=== PATIENT | female | born 1975 | race American Indian/Alaskan Native ===

== ENCOUNTER 2016-09-08 11:29 | Outpatient (CLI) | payer BC ==
--- NOTE | 2016-09-08 13:31 | Mammography Report ---
Bilateral mammogram: Compared to 07/28/15. CAD study utilized. Findings: Heterogeneous breast parenchyma bilaterally. Focal 3 mm high density asymmetry noted at the left mid breast. No microcalcification. Normal axilla. Impression: Focal new density asymmetry medial left breast. Recommend spot manifestation of breath examination. BI-RADS CATEGORY: 0 = Needs additional imaging evaluation ACR BI-RADS MAMMOGRAPHIC CODES: 0 = Needs additional imaging evaluation; 1 = Negative; 2 = Benign; 3 = Probably benign; 4 = Suspicious; 5 = Malignant; 6 = Known biopsy-proven malignancy COMMENT: 1. Dense breast tissue, i.e., adenosis, fibrocystic changes, etc., may obscure an underlying neoplasm. 2. Approximately 10% of cancers are not detected with mammography. 3. A negative mammography report should not delay biopsy if a clinically suspicious mass is present. COMMENT: Patient follow-up letters are generated in [employer].
== END 2016-09-08 11:30 | disposition home or self-care (01) ==
LOC: MAMMO 11:29
PROVIDERS: ATTEND Obstetrics & Gynecology
DX: Z12.31 Encounter for screening mammogram for malignant neoplasm of breast (principal)
CPT/HCPCS: 77067; G0202

== ENCOUNTER 2016-10-06 07:44 | Outpatient (CLI) | payer BC ==
--- NOTE | 2016-10-06 09:26 | Ultrasound Report ---
Left mammogram and left breast ultrasound: Based on recent screening examination additional mammogram compression lateral views of the left breast are obtained. A small focal area of density is relatively persistent on the compression views but less well-visualized on the straight lateral compression image. There is no architectural distortion on the additional images. Global left breast ultrasound does identified an elongated almost anechoic collection at 9:00. It is elongated measuring approximately 4 x 20 mm. The margins are sharp. There is slight enhancement of distal echoes. No other findings. Impressions: Probably benign mammogram and ultrasound findings. Recommendation: Repeat mammogram and left breast ultrasound in 6 months to confirm stability. The recommendations have been told to the patient. BI-RADS CATEGORY: 3 = Probably benign ACR BI-RADS MAMMOGRAPHIC CODES: 0 = Needs additional imaging evaluation; 1 = Negative; 2 = Benign; 3 = Probably benign; 4 = Suspicious; 5 = Malignant; 6 = Known biopsy-proven malignancy COMMENT: 1. Dense breast tissue, i.e., adenosis, fibrocystic changes, etc., may obscure an underlying neoplasm. 2. Approximately 10% of cancers are not detected with mammography. 3. A negative mammography report should not delay biopsy if a clinically suspicious mass is present.
== END 2016-10-06 07:45 | disposition home or self-care (01) ==
LOC: US 07:44
PROVIDERS: ATTEND Obstetrics & Gynecology
DX: R92.8 Other abnormal and inconclusive findings on diagnostic imaging of breast (principal)
CPT/HCPCS: 76641; G0206

== ENCOUNTER 2017-10-12 08:17 | Outpatient (CLI) | payer OTHER ==
--- NOTE | 2017-10-12 10:27 | Ultrasound Report ---
Bilateral tomomammogram and 2-D mammogram, bilateral breast ultrasound: Standard 2-D images are compared to her prior exams in 2016 and 2017. Images of the right breast demonstrates an elongated stable nodule in the inferomedial right breast. The breast pattern is heterogeneous and not otherwise remarkable. There is an elongated circumscribed nodule in the central left breast seen only in the CC projection which is apparently inferior in position on the lateral projection. On the prior exam it is only identified in the lateral view. The central asymmetry that was identified on that examination in the lateral projection is no longer identified. Mammotomograms demonstrate the left nodule to represent a circumscribed, elongated density having no calcifications or other suspicious characteristics. It is located in the 6:00 location measuring 12 mm in length.Tomograms of the right breast demonstrate a somewhat irregular contoured but elongated nodule in the medial breast measuring 3.1 cm. It is well visualized in the CC projection but less well-defined in the lateral tomograms. Ultrasound of the right breast in the 4:00 location demonstrates a circumscribed slightly inhomogeneous hypodensity which is elongated and measures 2.6 cm in maximum dimension. No calcifications. No internal blood flow. In the left breast there is a similar finding in the 6:00 location 2 cm from the nipple having a maximum dimension of 14.6 mm with no internal flow. CAD used. Impression: Bilateral circumscribed nodules apparently stable since 2016 on mammogram. Benign characteristics consistent with fibroadenoma by ultrasound. Recommendation: 6 month followup bilateral ultrasound to confirm stability of these findings. BI-RADS CATEGORY: 3 = Probably benign ACR BI-RADS MAMMOGRAPHIC CODES: 0 = Needs additional imaging evaluation; 1 = Negative; 2 = Benign; 3 = Probably benign; 4 = Suspicious; 5 = Malignant; 6 = Known biopsy-proven malignancy COMMENT: 1. Dense breast tissue, i.e., adenosis, fibrocystic changes, etc., may obscure an underlying neoplasm. 2. Approximately 10% of cancers are not detected with mammography. 3. A negative mammography report should not delay biopsy if a clinically suspicious mass is present.
== END 2017-10-12 08:18 | disposition home or self-care (01) ==
LOC: MAMMO 08:17
PROVIDERS: ATTEND Obstetrics & Gynecology
DX: Z12.31 Encounter for screening mammogram for malignant neoplasm of breast (principal); N63.10 Unspecified lump in the right breast, unspecified quadrant; N63.20 Unspecified lump in the left breast, unspecified quadrant
CPT/HCPCS: 77063; 77067

== ENCOUNTER 2017-10-29 13:35 | Outpatient (CLI) | payer OTHER ==
--- NOTE | 2017-10-29 16:43 | Ultrasound Report ---
RIGHT BREAST ULTRASOUND: 10/29/17 13:35:00 CLINICAL: Presented for a needle biopsy of a Mass described to be at 4 o'clock 3 cm from the nipple. COMPARISON: 10/12/17 ultrasound and screening mammogram with tomosynthesis. FINDINGS: Ultrasound of the right breastfail to demonstrate a mass to biopsy. The structure that was described at the previous exam and was recommended for biopsy appears to be a benign fat lobule. It is isoechoic with several similar fat lobules from 3 o'clock to 4 o'clock 3 cm from the nipple. I also scanned the left breast and found no mass to warrant biopsy. The abnormality described to be at 6 o'clock on the last ultrasound also appears to be a benign fat lobule. IMPRESSION: Negative right breast ultrasound with no mass to biopsy. Recommend a six month followup bilateral diagnostic mammogram with tomosynthesis and ultrasound if needed since the ultrasound workups were based on mammographic findings. BI-RADS 3 - - Probably Benign
== END 2017-10-29 13:36 | disposition home or self-care (01) ==
LOC: SPVWC 13:35
PROVIDERS: ATTEND Surgery
DX: N63.10 Unspecified lump in the right breast, unspecified quadrant (principal)

== ENCOUNTER 2017-12-18 06:03 | Observation (INO) | payer OTHER ==
[2017-12-17 14:17] LABS: Basophils # (Auto) 0.1 K/mm3 (0.0-0.1); Eosinophils # (Auto) 0.1 K/mm3 (0.0-0.4); Eosinophils % (Auto) 2.3 % (0.0-4.3); Hematocrit 36.7 % (30.3-42.9); Hemoglobin 12.2 gm/dl (10.1-14.3); Lymphocytes # (Auto) 2.3 K/mm3 (1.2-5.4); Lymphocytes % (Auto) 45.6 % (13.4-35.0); Mean Corpuscular HGB Conc 33 % (30-34); Mean Corpuscular Hemoglobin 28 pg (28-32); Mean Corpuscular Volume 85 fl (79-97); Monocytes # (Auto) 0.5 K/mm3 (0.0-0.8); Monocytes % (Auto) 9.7 % (0.0-7.3); Platelet Count 250 K/mm3 (140-440); Red Cell Distribution Width 14.7 % (13.2-15.2)
--- NOTE | 2017-12-17 17:57 | Anesthesia Day of Surgery ---
Anesthesia Day of Surgery - Day of Surgery Patient Examined: Yes Patient H&P Reviewed: Yes Patient is NPO: Yes
--- NOTE | 2017-12-17 19:04 | History and Physical Report ---
History of Present Illness Date of examination: 12/12/17 Chief complaint: Fibroids, severe dysmenorrhea, pelvic pain, history of endometriosis History of present illness: Past History : 4 Term Births: 3 Living Children: 3 Spont. Ab: 1 # 1 Delivery date: 1988 Comments: [id number] [employer] History Operations: D&C: [employer] Surgery: l'scopy-endometriosis Tubal Ligation Abnormal PAP: negative Infection History HIV Risk Eval: no Hx of STD: None Active Medications (reviewed today): TRULANCE TABLET (PLECANATIDE TABS) IBUPROFEN 800 MG ORAL TABLET (IBUPROFEN) 1 po TID (PRN) OXYCODONE-ACETAMINOPHEN 5-325 MG ORAL TABLET (OXYCODONE-ACETAMINOPHEN) 1-2po q6h LUPRON DEPOT (1-MONTH) 3.75 MG INTRAMUSCULAR KIT (LEUPROLIDE ACETATE) 3.75mg IM qminth x3 Current Allergies (reviewed today): No known allergies Past Medical History: Reviewed history from 10/03/2017 and no changes required: chronic constipation Endometriosis Past Surgical History: Reviewed history from 08/27/2008 and no changes required: D&C: [employer] Surgery: l'scopy-endometriosis Tubal Ligation Family History Summary: Reviewed history Last on 10/03/2017 and no changes required:12/17/2017 Has No Family History of Brain Cancer - Entered On: 10/15/2016 Has No Family History of Colon Cancer - Entered On: 10/15/2016 Has No Family History of DVT/PE on OCP - Entered On: 10/15/2016 Has No Family History of Kidney/Urinary Tract Cancer - Entered On: 10/15/2016 Has No Family History of Ovarvian Cancer - Entered On: 10/15/2016 Has No Family History of Pancreatic Cancer - Entered On: 10/15/2016 Has No Family History of Stomach Cancer - Entered On: 10/15/2016 Has No Family History of Small Bowel Cancer - Entered On: 10/15/2016 Has No Family History of Uterine Cancer - Entered On: 10/15/2016 General Comments - FH: Family History Breast Cancer:paternal aunt dx'd 40's No Family History of Colon Cancer No Family History of Ovarian Cancer No Family History of DVT/PE on OCP Social History: Reviewed history from 08/31/2016 and no changes required: Patient is Smoking History: Patient has never smoked. Risk Factors: Smoked Tobacco Use: Never smoker Smokeless Tobacco Use: Never Drug use: no HIV high-risk behavior: no Alcohol use: no Exercise: yes Seatbelt use: 100 % Mammogram History: Date of Last Mammogram: 09/08/2016 PAP Smear History: Date of Last PAP Smear: 08/31/2016 Previous Tobacco Use: Signed On 10/03/2017 Smoked Tobacco Use: Never smoker Smokeless Tobacco Use: Never Drug use: no HIV high-risk behavior: no Previous Alcohol Use: Signed On - 10/03/2017 Alcohol use: no Exercise: yes Times per week: 1 Seatbelt use: 100 % Mammogram History: Date of Last Mammogram: 09/08/2016 PAP Smear History: Date of Last PAP Smear: 08/31/2016 Review of Systems General Denies fever, chills, sweats, anorexia, fatigue, weakness, malaise, weight loss and sleep disorder. Complains of pelvic pain. Denies vaginal discharge, incontinence, dysuria, hematuria, urinary frequency, amenorrhea, menorrhagia, abnormal vaginal bleeding, genital sores, decreased libido, painful periods, painful sex, urinary urgency, hot flashes, vaginal dryness, vaginal itching and vaginal odor. CV Denies chest pains, palpitations, syncope, dyspnea on exertion, orthopnea, PND and peripheral edema. Resp Denies cough, dyspnea at rest, excessive sputum, hemoptysis, wheezing and pleurisy. GI Denies nausea, vomiting, diarrhea, constipation, change in bowel habits, abdominal pain, melena, hematochezia, jaundice, gas/bloating, indigestion/ heartburn, dysphagia and odynophagia. Endo Denies cold intolerance, heat intolerance, polydipsia, polyphagia, polyuria and unusual weight change. Breast Denies left breast lump, right breast lump, nipple discharge, bloody discharge from nipple, breast pain, abnormal mammogram and breast enlargement. MS Denies back pain, joint pain, joint swelling, muscle cramps, muscle weakness, stiffness, arthritis, sciatica, restless legs, leg pain at night and leg pain with exertion. Derm Denies rash, itching, dryness and suspicious lesions. Neuro Denies paralysis, paresthesias, headache, seizures, tremors, vertigo, transient blindness, frequent falls, frequent headaches and difficulty walking. Psych Denies depression, anxiety, irritability and mood swings. Eyes Denies blurring, diplopia, irritation, discharge, vision loss, eye pain and photophobia. ENT Denies earache, ear discharge, tinnitus, decreased hearing, nasal congestion, nosebleeds, sore throat and hoarseness. Allergy Denies urticaria, allergic rash, hay fever and recurrent infections. Heme Denies abnormal bruising, bleeding and enlarged lymph nodes. Physical Exam Appearance: well developed, well nourished, no acute distress Other Exams Abdomen: soft, non-tender, no masses Skin: no ulcers, xanthomas Extremities: normal alignment, no joint enlargement, crepitus, masses or tenderness; normal tone and strength CV: RRR Lungs: CTAB Genitourinary Exam Vulva: normal, no lesions or discharge Urethral meatus: normal size and location, no lesions or discharge Urethra: no discharge Bladder: no cystocele Vagina: normal appearance, no discharge, lesions. No evidence of cystocele or rectocele. Cervix: normal appearance, no lesions, no discharge Uterus: anterior fibroid, fixed Adnexa: no masses or tenderness Impression & Recommendations: Problem # 1: DYSMENORRHEA (ICD-625.3) (DIO18-Q39.6) Consent reviewed and signed . Possible laparoscopy or laparotomy explained to patient. The risks and alternatives for this surgery were reviewed with the patient. She was informed of possible bleeding, infection, injury to bowel, bladder, ureters or other adjacent organs. Se desires ovarian conservation. She was informed she may require surgery later to have her ovaries removed for a benign or mailgnant condition She was also informed she will not be able to get after her uterus has been removed. The patient was instructed/informed the following: The normal length of hospital stay for this procedure. Nothing to eat or drink after midnight the evening prior to surgery. Clear liquids the day before surgery. Fleets enema the day prior to surgery. Pre-op instruction sheets given. Wound care instructions given. Infection precautions reviewed, patient to call for any signs or symptoms of infection. The usual discomforts associated with this procedure were detailed. Proper use of pain medicines was reviewed. Patient was given ample opportunity to have all her questions answered before signing informed consent. Problem # 2: Pelvic and perineal pain (ICD-789.00) (IMP27-I15.2) It was extensively explained to her that her pain may persist, recur or change in nature due to the difficulty with diagnosis chronic pelvic pain or development of adhesions. She declined other treatment options at this time Her updated medication list for this problem includes: Problem # 3: FIBROID UTERUS (ICD-218.0) (LEJ07-F74.0) Diagnosis explained to patient . Questions answered. Discussed with patient various medical, surgical and radioloigal therapies common for treatment: Hormonal/medical therapy, fibroid embolization, removal of fibroids or hysterectomy Shedesires to proceed with hysterectomy Her updated medication list for this problem includes: Ibuprofen 800 Mg Oral Tablet (Ibuprofen) ..... 1 po tid (prn) Oxycodone-acetaminophen 5-325 Mg Oral Tablet (Oxycodone-acetaminophen) ..... 1-2po q6h Orders: Ofc Vst Est 77390 (CPT-22499) Problem # 4: ENDOMETRIOSIS OF PELVIC PERITONEUM (ICD-617.3) (HSC30-W38.3) Endometriosis was thoroughly reviewed. She is aware that he pain may progressively worsen if endometriosis is again present and she preserves her ovaries. Patient voiced understanding and still desires ovarian conservation Medications Added to Medication List This Visit: 1) Trulance Tablet (Plecanatide tabs) 2) Ibuprofen 800 Mg Oral Tablet (Ibuprofen) .... 1 po tid (prn) 3) Oxycodone-acetaminophen 5-325 Mg Oral Tablet (Oxycodone-acetaminophen) .... 1-2po q6h Prescriptions: IBUPROFEN 800 MG ORAL TABLET (IBUPROFEN) 1 po TID (PRN) #30 x 1 Entered and Authorized by: Monica Caban MD Method used: Print then Give to Patient RxID: [id number] OXYCODONE-ACETAMINOPHEN 5-325 MG ORAL TABLET (OXYCODONE-ACETAMINOPHEN) 1-2po q6h #30 x 0 Entered and Authorized by: Monica Caban MD Method used: Print then Give to Patient RxID: [id number] Medications and Allergies Allergies Allergy/AdvReac Type Severity Reaction Status Date / Time No Known Allergies Allergy Unverified 12/12/17 16:13 Home Medications Medication Instructions Recorded Confirmed Last Taken Type No Known Home Medications [No 12/12/17 12/12/17 Unknown History Reported Home Medications] Active Meds: Active Medications Lactated Ringer's (Lactated Ringers) 1,000 mls @ 100 mls/hr IV DIRECT REUBEN Cefazolin Sodium (Ancef/Sterile Water 2 Gm/20 Ml) 2 gm in 20 mls @ 80 mls/hr IV PREOP NR; Protocol Midazolam HCl (Versed) 2 mg IV PREOP NR Stop: 12/18/17 23:59 Exam Vital Signs Temp Pulse Resp BP 98.4 F 76 16 110/70 12/17/17 13:50 12/17/17 13:50 12/17/17 13:50 12/17/17 13:50 Results - Labs 12/17/17 14:00 Abnormal lab results 12/17/17 Range/Units 14:00 Lymph % (Auto) 45.6 H (13.4-35.0) % Johnston % (Auto) 9.7 H (0.0-7.3) % Assessment and Plan - Patient Problems (1) Dysmenorrhea Status: Chronic (2) Pelvic pain Status: Chronic (3) Fibroids Status: Chronic Qualifiers: Uterine leiomyoma location: intramural, submucous, and subserous Qualified Code(s): D25.1 - Intramural leiomyoma of uterus; D25.0 - Submucous leiomyoma of uterus; D25.2 - Subserosal leiomyoma of uterus (4) History of endometriosis Status: Chronic
[~2017-12-18 06:03] MED LIST: ANCEF/STERILE WATER 2 GM/20 ML 2 GM/20 ML SYRINGE IV NR; LACTATED RINGERS 1,000 ML IV SCH; VERSED IV NR
[2017-12-18] MEDS ORDERED: NACL BACTERIOSTATIC INFILTRATI ONE (06:32)
[2017-12-18] MEDS ORDERED: LACTATED RINGERS 1,000 ML IV SCH ×2 (07:00→14:01)
[2017-12-18] MEDS ORDERED: NEURONTIN PO NR (07:00)
[2017-12-18] MEDS ORDERED: REGLAN IV PRN ×2 (07:08→14:01)
[2017-12-18] MEDS ORDERED: NARCAN 0.4 MG/1 ML IV PRN (07:08)
[2017-12-18] MEDS ORDERED: ZOFRAN IV PRN ×2 (07:08→14:01)
[2017-12-18] MEDS ORDERED: DEMEROL IV PRN (07:08)
[2017-12-18] MEDS ORDERED: TYLENOL PO PRN (07:08)
[2017-12-18] MEDS ORDERED: DIPRIVAN 10 MG/ML IV ONE (07:11)
[2017-12-18] MEDS ORDERED: XYLOCAINE MPF 2% ONE ×2 (07:11)
[2017-12-18] MEDS ORDERED: ZEMURON IV ONE (07:12)
[2017-12-18] MEDS ORDERED: DILAUDID ONE (07:12)
[2017-12-18] MEDS ORDERED: ZOFRAN ONE (07:12)
[2017-12-18] MEDS ORDERED: DECADRON ONE (07:12)
[2017-12-18] MEDS ORDERED: NEOSPORIN GU IR ONE ×2 (07:23→09:01)
[2017-12-18 08:18] LABS: Alanine Aminotransferase 8 units/L (7-56); Albumin 3.7 g/dL (3.9-5); BUN/Creatinine Ratio 9; Blood Urea Nitrogen 6 mg/dL (7-17); Calcium 8.2 mg/dL (8.4-10.2); Hemolysis Index 13
[2017-12-18] MEDS ORDERED: MARCAINE 0.5% 30 ML INFILTRATI ONE (08:26)
[2017-12-18] MEDS ORDERED: NACL 0.9% IR ONE (09:01)
[2017-12-18] MEDS ORDERED: WATER FOR IRRIG STERILE IR ONE (09:01)
[2017-12-18] MEDS ORDERED: MARCAINE 0.5% INFILTRATI ONE (09:01)
[2017-12-18] MEDS ORDERED: BLOXIVERZ ONE (10:10)
[2017-12-18] MEDS ORDERED: ROBINUL ONE (10:10)
--- NOTE | 2017-12-18 10:14 | Operative Report ---
Operative Report Operative Report: Date: 12/18/2017 Preoperative diagnosis: 1. Pelvic pain 2. Severe dysmenorrhea 3. Uterine fibroids 4. History of endometriosis Postoperative diagnosis: 1. Pelvic pain 2. Severe dysmenorrhea 3. Uterine fibroids 4. History of endometriosis 5. Right ovarian cyst Procedure: 1. Robotic-assisted laparoscopic total hysterectomy with bilateral salpingectomy 2. Right ovarian cystectomy Surgeon: Monica Caban MD Health Information Technologist: Tana Childs Anesthesiologist: Mihai Thomas M.D. Anesthesia: General endotracheal anesthesia EBL: Approximately 50 mL Findings: Uterus was sounded to 11 cm. 1 cm right ovarian cyst. Grossly normal segments of bilateral fallopian tubes. Grossly normal left ovary. Uterus was enlarged with multiple fibroids. Cervix appeared normal. Procedure: Patient was taken to the OR and placed in the supine position. General anesthesia was induced and an oral gastric tube was placed. Her neck and head were placed on foam support. Foam eye protection with goggles were secured in place. Then foam face protection was placed and secured. Foam shoulder pads were then positioned on her shoulders for Trendelenburg positioning. She was then placed in dorsolithotomy position. Exam under anesthesia []. The abdomen and vagina were then prepped and draped in the usual sterile fashion. Timeout was performed. A Howard catheter was inserted into the bladder with drainage of clear yellow urine. The operative speculum was introduced into the vagina and the anterior lip of the cervix was grasped with single-toothed tenaculum. The uterus was sounded to [] cm. The cervix was progressively dilated to allow the large V care uterine manipulator. The bulb of the manipulator was inflated and the speculum and tenaculum were removed. The cup of the manipulator was placed around the cervix and the blue occluder of the manipulator was properly positioned in the vagina. A laparotomy sponge that was saturated with a solution of polymyxin and saline was placed in the vagina to ensure pneumoperitoneum. Sterile gloves were placed and attention was turned to the abdomen. A 10 mm vertical supraumbilical incision was made approximately 10 cm superior to the elevated fundus of the uterus. A 12 mm trocar with the laparoscope and camera attached was introduced through this incision under direct visualization. The abdomen was insufflated. No obvious bowel, bladder, ureteral, or major vascular injury was noted. The patient was then placed in steep Trendelenburg position and the following trochars were placed under direct visualization: 8 mm robotic trochars were placed through incisions made in the bilateral midclavicular lower abdominal region approximately 10 cm lateral and approximately 2 cm below the midline incision, and a 5 mm trocar was placed through an incision made in the right lower lateral pelvis approximately 2 cm superior to the iliac crest. The 10 mm laparoscope was then replaced by a 5 mm laparoscope that was placed through the 5 millimeter lateral trocar. The 12 mm trocar was then removed in the Vito Méndez fascial closure device was placed through the incision and a 0 Vicryl was placed through the fascia. Once the suture was secured the 12 mm trocar was reintroduced. Once the trochars were in the appropriate positions, the the mPowa robot system was engaged. The EndoShears and bipolar device was placed through the 8 mm trochars and positioned then attention was turned to the console. The uterus was elevated and bilateral salpingectomy was performed. Each tube was removed through the 5 mm trocar and sent to pathology in separate containers. Then the utero-ovarian ligaments were clamped. cauterized and incised bilaterally using 30 W of energy. Then the round ligaments were clamped , cauterized and incised bilaterally. The anterior leaf of the broad ligament was elevated and careful blunt and sharp dissection the bladder flap was created and dissected away from the lower uterine segment and cervix. The posterior leaf of the broad ligament was dissected away from the uterine vessels. The cup of the uterine manipulator was palpated both anteriorly and posteriorly. Course of the ureters was visualized and was confirmed to be away from the operative field. The uterine vessels were then clamped and cauterized bilaterally. Blanching of the uterus was then noted. Attention was again turned to the anterior lower uterine segment and the bladder was confirmed to be away from the operative field. Then attention was turned again to the posterior where the cup of the manipulator was palpated and a colpotomy was performed down to the cup. The incision was extended in the lateral position the uterine vessels that were again clamped and cauterized and incised. Continuing along the cup of the manipulator in a circumferential manner the colpotomy was completed. The uterus and cervix were then removed through the vaginal incision. The pelvis was irrigated with warm normal saline. A moist laparotomy sponge was placed in the vagina to maintain pneumoperitoneum. The vagina cuff was reapproximated using V LOC 180 suture in a simple running stitch. Then a J stitch was performed to secure the suture. Again the pelvis was copiously irrigated with polymixin in warm normal saline. The laparotomy sponge was removed from the vagina. No bowel, bladder, ureteral or major vascular injury was noted. Then the right ovary was elevated and ovarian cystectomy was performed. Hemostasis obtained with electrocoagulation. The cyst was removed with 5 mm trocar. Once hemostasis was noted, Ryan was applied to the operative field to ensure hemostasis. Then Interceed was applied to the operative field to decrease formation of adhesions. Again hemostasis was noted. Grossly normal appendix was noted. Then the instruments were removed, the robot was disengaged. The 12 mm trocar was removed and the fascia was ligated with the 0 Vicryl suture that was placed at the beginning of the procedure. The patient was taken out of Trendelenburg position, the abdomen was desufflated, the remaining trochars were removed. Incisions were reapproximated using 4-0 Vicryl in a subcuticular manner. Incisions were infused with half percent Marcaine without epinephrine and Surgiseal was placed over the incisions. The vagina was then inspected, no bleeding was noted and clear yellow urine was draining into the Howard bag from the bladder at the end of the procedure. Patient was taken to recovery room in stable condition.
[2017-12-18] MEDS ORDERED: TORADOL IV NR (10:30)
[2017-12-18] MEDS: DILAUDID IV PRN ×4 (10:35→11:20)
[2017-12-18] MEDS ORDERED: ZOFRAN PO PRN (14:01)
[2017-12-18] MEDS ORDERED: ANCEF/NS 1 GM/50 ML 1 GM/50 ML BAG IV SCH (14:01)
[2017-12-18] MEDS ORDERED: REGLAN PO PRN (14:01)
[2017-12-18] MEDS ORDERED: TYLENOL PR PRN (14:01)
[2017-12-18] MEDS ORDERED: MORPHINE IV PRN (14:01)
[2017-12-18] MEDS: TYLENOL PO SCH (14:38)
--- NOTE | 2017-12-18 14:44 | Post Anesthesia Evaluation ---
- Post Anesthesia Evaluation Patient Participated: Yes Airway Patent: Yes Stable Respiratory Function: Yes Nausea/Vomiting: No Temp > 96.8F: Yes Pain Manageable: Yes Adequeate Hydration: Yes Anesthesia Complications: No Block Receding Appropriately: Not Applicable Patient on Ventilator: No
[2017-12-18] MEDS: ceFAZolin 1 GM in NACL 0.9% 20 ML IV SCH (16:45)
[2017-12-18] MEDS: PROTONIX IV SCH (16:46)
[2017-12-18] MEDS: TORADOL IV SCH (16:55)
--- NOTE | 2017-12-18 21:04 | Progress Note ---
Assessment and Plan Operative findings and procedure explained. No obvious evidence of DVT, will observe closely. Explained possible transient peroneal nerve compression with dorsolithotomy position. Plan of care discussed, questions were encouraged and answered. She voiced understanding and agrees with plan - Patient Problems (1) Dysmenorrhea Current Visit: No Status: Resolved (2) Pelvic pain Current Visit: No Status: Resolved (3) Fibroids Current Visit: No Status: Resolved Qualifiers: Uterine leiomyoma location: intramural, submucous, and subserous Qualified Code(s): D25.1 - Intramural leiomyoma of uterus; D25.0 - Submucous leiomyoma of uterus; D25.2 - Subserosal leiomyoma of uterus (4) History of endometriosis Current Visit: No Status: Chronic (5) History of robot-assisted laparoscopic hysterectomy Current Visit: Yes Status: Acute (6) Status post bilateral salpingectomy Current Visit: Yes Status: Acute Subjective - Subjective Date of service: 12/18/17 Principal diagnosis: DOS s/p RATH with(B) salpingectomy Interval history: Resting in bed, complains of pain (L) LE Patient reports: pain well controlled Objective - Vital Signs Latest vital signs: Vital Signs Temp Pulse Resp BP BP Pulse Ox 12/18/17 16:31 97.9 F 77 20 109/66 100 12/18/17 12:10 97.7 F 83 14 101/64 98 12/18/17 12:05 97.9 F 83 16 101/64 95 12/18/17 11:50 13 12/18/17 11:45 84 12 111/57 96 12/18/17 11:30 77 10 L 100/61 96 12/18/17 11:20 12 12/18/17 11:15 76 12 110/65 96 12/18/17 11:02 13 12/18/17 11:00 80 10 L 107/69 97 12/18/17 10:46 14 12/18/17 10:45 75 14 115/73 98 12/18/17 10:35 20 12/18/17 10:30 74 14 112/73 97 12/18/17 10:21 15 12/18/17 10:20 85 11 L 130/76 99 12/18/17 10:15 89 12 129/69 100 12/18/17 10:11 97.3 F L 100 H 13 129/74 100 12/18/17 06:20 97.8 F 72 20 111/69 100 Intake and Output 12/18/17 12/18/17 12/18/17 06:59 14:59 22:59 Intake Total 100 650 120 Output Total 405 500 Balance 100 245 -380 Intake: IV 100 650 Oral 120 Output: Urine 405 500 Indwelling Catheter 500 Other: Total, Intake Amount 120 Total, Output Amount 500 Voiding Method Toilet Indwelling Catheter - Exam Cardiovascular: Present: Regular rate Lungs: Present: Clear to auscultation, Normal air movement Abdomen: Present: normal appearance, normal bowel sounds. Absent: distention, tenderness, guarding Extremities: Absent: tenderness, edema Incision: Present: normal, dry, intact - Labs Labs: Abnormal lab results 12/18/17 Range/Units 07:40 BUN 6 L (7-17) mg/dL Calcium 8.2 L (8.4-10.2) mg/dL Alkaline Phosphatase 30 L (35-129) units/L Albumin 3.7 L (3.9-5) g/dL
[2017-12-19] MEDS: TYLENOL PO SCH ×2 (01:28→10:03)
[2017-12-19] MEDS: TORADOL IV SCH ×2 (01:28→10:03)
[2017-12-19] MEDS: ceFAZolin 1 GM in NACL 0.9% 20 ML IV SCH (01:29)
[2017-12-19] MEDS ORDERED: MILK OF MAGNESIA PO PRN (01:59)
[2017-12-19] MEDS: MYLICON PO PRN ×2 (04:11→19:20)
[2017-12-19 08:19] LABS: Hemoglobin 11.2 gm/dl (10.1-14.3)
--- NOTE | 2017-12-19 08:58 | Progress Note ---
Assessment and Plan POD#1, doing well. No nausea now, tolerated toast and cameron. Awaiting doppler Cautioned patient not to ambulate without assistance, however importance of ambulating to prevent DVT/PE emphasized. RN informed as well. Will allow home if doppler negative and no problems She voiced understanding - Patient Problems (1) Dysmenorrhea Current Visit: No Status: Resolved (2) Pelvic pain Current Visit: No Status: Resolved (3) Fibroids Current Visit: No Status: Resolved Qualifiers: Uterine leiomyoma location: intramural, submucous, and subserous Qualified Code(s): D25.1 - Intramural leiomyoma of uterus; D25.0 - Submucous leiomyoma of uterus; D25.2 - Subserosal leiomyoma of uterus (4) History of endometriosis Current Visit: No Status: Chronic (5) History of robot-assisted laparoscopic hysterectomy Current Visit: Yes Status: Acute (6) Status post bilateral salpingectomy Current Visit: Yes Status: Acute (7) Leg pain, left Current Visit: Yes Status: Acute Plan to address problem: Doppler ordered Subjective - Subjective Date of service: 12/19/17 Principal diagnosis: POD#1 s/p RATH with(B) salpingectomy Interval history: Resting in bed, leg feels much better. She has some nausea last pm, no vomiting. Patient reports: appetite normal (ate toast and cameron this am, no nausea), pain well controlled Objective - Vital Signs Latest vital signs: Vital Signs Temp Pulse Pulse Resp BP BP Pulse Ox 12/19/17 04:51 98.6 F 20 102/51 12/19/17 00:33 98.5 F 66 20 96/59 100 12/18/17 20:53 98.5 F 71 22 100/61 100 12/18/17 19:45 68 16 12/18/17 16:31 97.9 F 77 20 109/66 100 12/18/17 12:10 97.7 F 83 14 101/64 98 12/18/17 12:05 97.9 F 83 16 101/64 95 12/18/17 11:50 13 12/18/17 11:45 84 12 111/57 96 12/18/17 11:30 77 10 L 100/61 96 12/18/17 11:20 12 12/18/17 11:15 76 12 110/65 96 12/18/17 11:02 13 12/18/17 11:00 80 10 L 107/69 97 12/18/17 10:46 14 12/18/17 10:45 75 14 115/73 98 12/18/17 10:35 20 12/18/17 10:30 74 14 112/73 97 12/18/17 10:21 15 12/18/17 10:20 85 11 L 130/76 99 12/18/17 10:15 89 12 129/69 100 12/18/17 10:11 97.3 F L 100 H 13 129/74 100 Intake and Output 12/18/17 12/19/17 12/19/17 22:59 06:59 14:59 Intake Total 240 100 Output Total 1400 1350 Balance -1160 -1250 Intake: Oral 120 Intake, Free Water 120 100 Output: Urine 1400 1350 Indwelling Catheter 1400 1350 Other: Total, Intake Amount 120 Total, Output Amount 900 850 Voiding Method Indwelling Catheter - Exam Breasts: Present: deferred Cardiovascular: Present: Regular rate Lungs: Present: Clear to auscultation, Normal air movement Abdomen: Present: normal appearance, soft, normal bowel sounds. Absent: distention, guarding Extremities: Present: normal. Absent: tenderness, edema Incision: Present: normal, dry, intact
[2017-12-19] MEDS: PROTONIX IV SCH (10:03)
[2017-12-19] MEDS ORDERED: PERCOCET 5/325 PO PRN (10:30)
--- NOTE | 2017-12-19 20:51 | Cat Scan Report ---
FINAL REPORT PROCEDURE: CT ANGIO CHEST TECHNIQUE: Computerized tomographic angiography of the chest was performed after the IV injection of iodinated nonionic contrast including image processing. The image data was postprocessed using 2-dimensional multiplanar reformatted (MPR) and 3-dimensional (MIP and/or volume rendered) techniques. HISTORY: s/p abd surgery, evaluate for pulmonary embolism COMPARISON: No prior studies are available for comparison. FINDINGS: Heart and pericardium: Normal. Thoracic aorta: Normal. Pulmonary vasculature: Normal. Lymph nodes: No enlarged thoracic lymph nodes. Lungs: Normal. Pleural space: Minimal bilateral pleural effusions are noted.. Musculoskeletal structures: No significant abnormality. Upper abdominal structures: Mild degree free air is noted in the peritoneal cavity consistent with recent abdominal surgery.. IMPRESSION: No evidence of pulmonary embolism No acute pulmonary process Mild degree free air in the peritoneal cavity is consistent with recent abdominal surgery.
--- NOTE | 2017-12-19 22:20 | Event Note ---
Date: 12/19/17 Complained of SOB earlier, CT scan chest ordered, procedure delayed because she ate. S/w patient by phone, CT scan results discussed, states she feels better. Minimal pleural effusions. Will observe tonight and allow home tomorrow if she continues to be stable. Patient agrees with plan of care.
--- NOTE | 2017-12-20 07:46 | Discharge Summary ---
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 Her post op course was complicated by complains of LLE tightness and pain the evening on surgery, prior to receiving the results of the Doppler study she then complained of SOB. CT chest was completed ~1700 and results were not available until ~2029. She was observed overnight. This am no complaints and desires d/c home Disposition: TO HOME OR SELFCARE - Discharge Diagnoses (1) History of endometriosis Status: Chronic (2) History of robot-assisted laparoscopic hysterectomy Status: Acute (3) Status post bilateral salpingectomy Status: Acute (4) Leg pain, left Status: Acute Core Measure Documentation - Palliative Care Palliative Care/ Comfort Measures: Not Applicable - Core Measures Any of the following diagnoses?: none Exam - Constitutional Vitals: Temp Pulse Resp BP Pulse Ox 97.8 F 71 20 97/59 99 12/20/17 00:52 12/20/17 00:52 12/20/17 00:52 12/20/17 00:52 12/20/17 00:52 General appearance: Present: no acute distress - Respiratory Respiratory effort: normal Respiratory: bilateral: CTA - Cardiovascular Rhythm: regular - Extremities Extremities: no ischemia, No edema (NT) - Abdominal General gastrointestinal: Present: soft, non-distended, normal bowel sounds - Rectal Rectal Exam: deferred - Integumentary Integumentary: Present: clear, warm, dry - Psychiatric Psychiatric: appropriate mood/affect, intact judgment & insight Plan Activity: other (No sex, ambulate ~1mile on your property a day. Use your Incentive spirometer every hour while awake. ) Weight Bearing Status: Full Weight Bearing Diet: regular (Eat small meals frequently. drink ~64oz water a day. Void every 1 -2 hours. ) Wound: open to air, keep clean and dry Special Instructions: no heavy lifting (greater than 25#) Follow up with: TERELL CAMERON MD [Staff Physician] - (As scheduled)
[2017-12-20 08:29] VITALS: BP 112/47
== END 2017-12-20 09:35 | disposition home or self-care (01) ==
LOC: OR 06:03 → OB 10:30
PROVIDERS: ADMIT Obstetrics & Gynecology; ATTEND Obstetrics & Gynecology
DX: D25.9 Leiomyoma of uterus, unspecified (principal); N94.6 Dysmenorrhea, unspecified; N80.3 Endometriosis of pelvic peritoneum
CPT/HCPCS: 36415; 58554; 71275; 80053; 81025; 85014; 85018; 85025; 86850; 86900; 86901; 88305; 88307; 93971; 96374; 96375; 96376; A4217; C1765; C9113; G0378; J0690; J1100; J1170; J1885; J2250; J2405; J2704; J2710; J2765; J7120; S2900; 88302

== ENCOUNTER 2019-02-04 14:11 | Outpatient (CLI) | payer OTHER ==
--- NOTE | 2019-02-04 16:23 | Mammography Report ---
DIGITAL SCREENING MAMMOGRAM WITH TOMOSYNTHESIS WITH CAD, 02/04/2019 INDICATION: Screening. TECHNIQUE: Digital bilateral 2D and 3D mammography with tomosynthesis was obtained in the craniocaud al and mediolateral oblique projections. Computer-Aided Detection (CAD) analysis was used for interp retation of this study. COMPARISON: 09/08/2016, 10/12/2017. FINDINGS: Breast Density: The breasts are extremely dense, which lowers the sensitivity of mammography. There is no evidence of new dominant mass, suspicious calcifications or architectural distortion in e ither breast. There is a stable oval well-circumscribed mass in the 6:00 position of the left breast, middle depth, measuring 1.2 cm. There is a stable 1.6 cm oval well-circumscribed mass in the right b reast at 8:00, unchanged from prior exam. Previously described 3 cm mass in the right breast at 4:00 is not clearly identified. IMPRESSION: Bilateral stable nodules, most consistent with fibroadenomas. No new finding. BI-RADS Category 2: Benign. No mammographic evidence of malignancy. Recommend routine screening ma mmography in one year. A "normal" or negative report should not discourage follow up or biopsy of a clinically significant f inding. A written summary of these findings will be mailed to the patient. The patient will be entered into a mammography reporting system which will generate a reminder letter for the patient's next appointmen t at the appropriate interval. The [employer] recommends yearly mammograms starting at age 40 and continuing as l barrie as a woman is in good health. Breast MRI is recommended for women with an approximate 20-25% or greater lifetime risk of breast cancer, including women with a strong family history of breast or ova zuhair cancer or who have been treated for Hodgkin's disease. Signer Name: Nelly Hope MD Signed: 02/04/2019 4:19 PM Workstation Name: [id number]
== END 2019-02-04 14:12 | disposition home or self-care (01) ==
LOC: SPVWC 14:11
PROVIDERS: ATTEND Surgery
DX: Z12.31 Encounter for screening mammogram for malignant neoplasm of breast (principal)
CPT/HCPCS: 77063; 77067

== ENCOUNTER 2020-10-14 08:23 | Outpatient (CLI) | payer OTHER ==
--- NOTE | 2020-10-14 18:33 | Mammography Report ---
DIGITAL SCREENING MAMMOGRAM WITH TOMOSYNTHESIS WITH CAD, 10/14/2020 CLINICAL INFORMATION / INDICATION: Routine Screening Mammography. TECHNIQUE: Digital bilateral 2D and 3D mammography with tomosynthesis was obtained in the craniocaud al and mediolateral oblique projections. Computer-Aided Detection (CAD) analysis was used for interp retation of this study. COMPARISON: Prior mammogram 02/04/2019 FINDINGS: Breast Density: The breasts are extremely dense, which lowers the sensitivity of mammography. No dominant mass, suspicious calcifications, or architectural distortion in the right breast. There is a 1.2 cm asymmetric density seen in the central to slightly medial left breast, middle depth , on CC tomosynthesis only. This localizes inferiorly on tomosynthesis, likely in the 6 to 7:00 posit ion. IMPRESSION: 1. An asymmetric density in the left breast requires further evaluation with targeted ultrasound and additional views if needed. Follow up recommendation: Ultrasound BI-RADS Category 0: Incomplete. Needs additional imaging evaluation and/or prior mammograms for mike joshion. A "normal" or negative report should not discourage follow up or biopsy of a clinically significant f inding. A written summary of these findings will be mailed to the patient. The patient will be entered into a mammography reporting system which will generate a reminder letter for the patient's next appointmen t at the appropriate interval. The [employer] recommends yearly mammograms starting at age 40 and continuing as l barrie as a woman is in good health. Breast MRI is recommended for women with an approximate 20-25% or greater lifetime risk of breast cancer, including women with a strong family history of breast or ova zuhair cancer or who have been treated for Hodgkin's disease. Signer Name: Gissell Howard MD Signed: 10/14/2020 6:29 PM Workstation Name: [email or web address]
== END 2020-10-14 08:24 | disposition home or self-care (01) ==
LOC: SPVWC 08:23
PROVIDERS: ATTEND Surgery
DX: Z12.31 Encounter for screening mammogram for malignant neoplasm of breast (principal)
CPT/HCPCS: 77063; 77067

== ENCOUNTER 2020-10-20 14:33 | Outpatient (CLI) | payer OTHER ==
--- NOTE | 2020-10-20 15:40 | Ultrasound Report ---
ULTRASOUND BREAST LEFT LIMITED, 10/20/2020 CLINICAL INFORMATION / INDICATION: INCONCLUSIVE MAMMO R92.2. TECHNIQUE: Targeted ultrasound evaluation was performed of the area of interest. COMPARISON: Bilateral mammography 10/14/20. FINDINGS: There is a 1.6 cm irregular, heterogeneous solid mass at the 6:00 position 5 cm from the nipple. No p osterior features are seen. There is mild increased vascularity along the margin of the lesion on Dop pler exam. This corresponds to the focal asymmetric density seen mammographically. No other abnormali ty is identified. IMPRESSION: 1.6 cm irregular mass in the inferior left breast is suspicious for malignancy. Biopsy is recommended. Follow up recommendation: Biopsy BI-RADS Category 4: Suspicious for Malignancy. A normal or "negative" report should not preclude biopsy or follow-up of a clinically suspicious find ing. Signer Name: Darron Yang MD Signed: 10/20/2020 3:36 PM Workstation Name: [id number]
== END 2020-10-20 14:34 | disposition home or self-care (01) ==
LOC: SPVWC 14:33
PROVIDERS: ATTEND Surgery
DX: N63.42 Unspecified lump in left breast, subareolar (principal)

== ENCOUNTER 2020-11-09 13:42 | Outpatient (CLI) | payer OTHER ==
--- NOTE | 2020-11-09 14:53 | Mammography Report ---
LEFT DIAGNOSTIC MAMMOGRAM INDICATION: Status post ultrasound-guided core biopsy of left breast mass at the 6:00 position. COMPARISON: 10/14/2020. FINDINGS: Left breast CC and LM projection mammograms were obtained. These document a U-shaped biopsy marker within the left breast at the 6:00 position (site of recent ultrasound guided core biopsy). IMPRESSION: Left breast mammographic images documenting accurate location of a U-shaped biopsy marker following u ltrasound-guided core biopsy of left breast mass at the 6:00 position. BI-RADS Category 4: Suspicious for Malignancy. Signer Name: Neno Balderas MD Signed: 11/09/2020 2:49 PM Workstation Name: [id number]
--- NOTE | 2020-11-09 16:11 | Ultrasound Report ---
ULTRASOUND-GUIDED CORE NEEDLE BIOPSY Left BREAST WITH CLIP PLACEMENT INDICATION: Left breast lesion at the 6:00 position COMPARISON: 10/20/2020. FINDINGS: Informed consent was obtained. The lesion within the left breast at the 6:00 position, 5 cm from the nipple, identified with ultrasound. The overlying skin was cleansed with chloro prep and local anesth esia was obtained with a 1% lidocaine solution. Under ultrasound guidance a 14-gauge spring loaded co re biopsy needle was advanced to the lesion. A total of 4 core samples were obtained. A U-shaped biop sy marker was placed to liliane the site of the biopsy. Specimen samples were placed in formalin and sen t to pathology for analysis. Patient tolerated the procedure well and no immediate complications were identified. A post procedure mammogram demonstrates accurate placement of the biopsy marker. IMPRESSION: Technically successful ultrasound-guided core biopsy of left breast lesion at the 6:00 position with placement of a U-shaped biopsy marker. An addendum will be added to this report once pathology results are available. Signer Name: Neno Balderas MD Signed: 11/09/2020 4:06 PM Workstation Name: [id number]
== END 2020-11-09 13:43 | disposition home or self-care (01) ==
LOC: SPVWC 13:42
PROVIDERS: ATTEND Surgery
DX: N63.24 Unspecified lump in the left breast, lower inner quadrant (principal); R92.8 Other abnormal and inconclusive findings on diagnostic imaging of breast; N64.89 Other specified disorders of breast; Z87.42 Personal history of other diseases of the female genital tract; Z90.710 Acquired absence of both cervix and uterus; Z90.79 Acquired absence of other genital organ(s)
CPT/HCPCS: 88305

== ENCOUNTER 2020-11-30 09:53 | Outpatient (CLI) | payer OTHER ==
--- NOTE | 2020-11-30 13:27 | Magnetic Resonance Report ---
BILATERAL BREAST MRI WITH AND WITHOUT CONTRAST CLINICAL INFORMATION/INDICATION: Recent left breast biopsy which was benign TECHNICAL: Coronal STIR, axial T1 and T2-weighted fat sat images were obtained precontrast. 12 cc Dot arem contrast was injected intravenously and serial axial T1 weighted images with fat saturation were obtained. 3-D MIP projections, kinetic analysis and subtraction imaging was utilized to evaluate. A dedicated 8-channel breast coil was used for image acquisition. COMPARISON: Recent screening mammogram 10/14/2020 and left breast ultrasound and left breast biopsy FINDINGS: Breast Density: The breasts are extremely dense, which lowers the sensitivity of mammography. Background Parenchymal Enhancement: Moderate Right breast: There is a 6 mm oval enhancing mass in the medial right breast, middle depth. The mass is approximately 4 cm from the nipple, 6 cm from the chest wall, and 5 mm from the medial skin surfac e. Retrospectively I do not identify a mammographic correlate. The remainder of the right breast is u nremarkable. Left breast: No mass, suspicious focus of enhancement or lymphadenopathy. There is a biopsy clip in t he inferior left breast, middle depth, at 6:00 corresponding to recent benign biopsy site. There is n o abnormal mass or surrounding enhancement identified associated with the biopsy clip. Additional findings: None. IMPRESSION: 1. Incidental finding of 6 mm oval enhancing mass in the medial right breast at approximately 4-5:00. Recommend right breast ultrasound for further evaluation. 2. No suspicious finding within the left breast. No abnormal enhancement or visible mass identified i n the inferior left breast at site of recent benign biopsy. BI-RADS Category 0: Incomplete. Needs additional imaging evaluation and/or prior mammograms for mike rison. Signer Name: Nelly Hope MD Signed: 11/30/2020 1:22 PM Workstation Name: [id number]
== END 2020-11-30 09:54 | disposition home or self-care (01) ==
LOC: SPVIMAG 09:53
PROVIDERS: ATTEND Surgery
DX: N63.14 Unspecified lump in the right breast, lower inner quadrant (principal); R92.8 Other abnormal and inconclusive findings on diagnostic imaging of breast
CPT/HCPCS: A9575; C8908; 77049

== ENCOUNTER 2020-12-15 15:29 | Outpatient (CLI) | payer OTHER ==
--- NOTE | 2020-12-16 07:08 | Ultrasound Report ---
ULTRASOUND BREAST RIGHT LIMITED, 12/15/2020 CLINICAL INFORMATION / INDICATION: Abnormal MRI. TECHNIQUE: Targeted ultrasound evaluation was performed of the area of interest. COMPARISON: Recent MRI 11/30/2020 FINDINGS: Sonographic evaluation of the medial right breast demonstrates a hypoechoic oval mostly smoothly kary inated mass in the 5:00 location, 4 cm from nipple. This mass measures 6 x 4 x 4 mm. This grossly cor responds to the enhancing nodule seen on recent MRI. Overall, this mass has benign features. IMPRESSION: Probably benign. Benign-appearing oval mass right breast 5:00 most likely correlates with small enhancing mass seen on recent MRI. Recommend 6 month follow-up right breast ultrasound. Follow up recommendation: Short term follow up in 6 months. BI-RADS Category 3: Probably Benign. Followup in 6 months. A normal or "negative" report should not preclude biopsy or follow-up of a clinically suspicious find ing. Signer Name: Nelly Hope MD Signed: 12/15/2020 5:15 PM Workstation Name: [id number]
== END 2020-12-15 15:30 | disposition home or self-care (01) ==
LOC: SPVWC 15:29
PROVIDERS: ATTEND Surgery
DX: N63.14 Unspecified lump in the right breast, lower inner quadrant (principal); R92.8 Other abnormal and inconclusive findings on diagnostic imaging of breast